=== PATIENT | female | born 1995 | race American Indian/Alaskan Native ===

== ENCOUNTER 2016-06-28 13:24 | Emergency (ER) | payer MEDICAID ==
[2016-06-28 15:40] LABS: Bacteria,Urine 1+ /HPF (Negative); Bilirubin,Urine NEG (Negative); Blood,Urine NEG (Negative); Ketones,Urine 80 mg/dL (Negative); Leukocyte Esterase,Urine NEG (Negative); Mucus,Urine 2+ /HPF; Nitrite,Urine NEG (Negative); Urobilinogen,Urine < 2.0 mg/dL (<2.0)
[2016-06-28 15:48] LABS: Basophils % (Auto) 0.6 % (0.0-1.8); Eosinophils % (Auto) 0.3 % (0.0-4.3); Hematocrit 38.1 % (30.3-42.9); Hemoglobin 12.4 gm/dl (10.1-14.3); Mean Corpuscular HGB Conc 32 % (30-34); Mean Corpuscular Hemoglobin 28 pg (28-32); Mean Corpuscular Volume 85 fl (79-97); Platelet Count 261 K/mm3 (140-440); Red Blood Count 4.47 M/mm3 (3.65-5.03); White Blood Count 8.4 K/mm3 (4.5-11.0)
[2016-06-28 16:00] LABS: Anion Gap 23 mmol/L; BUN/Creatinine Ratio 13.33; Blood Urea Nitrogen 8 mg/dL (7-17); Carbon Dioxide 20 mmol/L (22-30); Chloride 92.5 mmol/L (98-107); Glucose 73 mg/dL (65-100); Potassium 4.1 mmol/L (3.6-5.0); Sodium 131 mmol/L (137-145)
[2016-06-28] MEDS ORDERED: NACL 0.9% 1000 ML 1,000 ML IV ONE ×2 (21:03→21:04)
--- NOTE | 2016-06-28 21:06 | Emergency Department Report ---
HPI - General Chief Complaint: Nausea/Vomiting/Diarrhea Time Seen by Provider: 06/28/16 20:45 - HPI HPI: 21-year-old female presents the emergency department with nausea, vomiting, diarrhea, and lower abdominal pain that has been going on since last night. Patient also says she is about 3 months . There is been no bleeding, spotting, fever, back pain. Patient is with one previous miscarriage. She has a ADMINISTRATIVE OFFICE ASSISTANT back in [facility] but they just moved here to [place]. She denies any past medical history. No recent travel or sick contacts at home. She is not taken anything for symptoms prior to presentation. ED Past Medical Hx - Social History Smoking Status: Never Smoker Substance Use Type: None - Medications Home Medications: Home Medications Medication Instructions Recorded Confirmed Last Taken Type Vitamin 06/28/16 1 Day Ago History ED Review of Systems ROS: Stated complaint: ABD PAIN/PREG Other details as noted in HPI Comment: All other systems reviewed and negative Constitutional: denies: chills, fever Eyes: denies: eye pain, eye discharge, vision change ENT: denies: ear pain, throat pain Respiratory: denies: cough, shortness of breath, wheezing Cardiovascular: denies: chest pain, palpitations Gastrointestinal: abdominal pain, nausea, vomiting, diarrhea Genitourinary: denies: urgency, dysuria, discharge Musculoskeletal: denies: back pain, arthralgia Skin: denies: rash, lesions Neurological: denies: weakness, numbness Physical Exam - Physical Exam Vital Signs: Vital Signs 06/28/16 06/28/16 15:00 20:37 Temperature 98 F Pulse Rate 103 H Respiratory 103 H 16 Rate Blood Pressure 114/81 O2 Sat by Pulse 100 99 Oximetry Physical Exam: GENERAL: The patient is well-developed well-nourished. HEENT: Normocephalic. Atraumatic. Extraocular motions are intact. Patient has moist mucous membranes. Pupils equal reactive to light bilaterally. NECK: Supple. Trachea is midline. CHEST/LUNGS: Clear to auscultation. There is no respiratory distress noted. HEART/CARDIOVASCULAR: Regular. There is no tachycardia. There is no gallop rub or murmur. ABDOMEN: Abdomen is soft. Mild tenderness to palpation to the lower quadrants of the abdomen. No guarding rebound tenderness. Patient has normal bowel sounds. There is no abdominal distention. SKIN: There is no rash. There is no edema. There is no diaphoresis. NEURO: The patient is awake, alert, and oriented. The patient is cooperative. The patient has no focal neurologic deficits. The patient has normal speech. MUSCULOSKELETAL: There is no tenderness or deformity. There is no limitation range of motion. There is no evidence of acute injury. ED Course Vital Signs 06/28/16 06/28/16 15:00 20:37 Temperature 98 F Pulse Rate 103 H Respiratory 103 H 16 Rate Blood Pressure 114/81 O2 Sat by Pulse 100 99 Oximetry - Consultations Consultation #1: Earlier this evening I spoke with the ADMINISTRATIVE OFFICE ASSISTANT network operations project manager, Dr. Monet, regarding the abnormal ultrasound read of complex fluid versus bowel loop versus coagulation versus debris in the adnexa with a live intrauterine and normal- appearing ovaries. Dr. Monet agrees that it is important for the patient to follow-up with a ADMINISTRATIVE OFFICE ASSISTANT but otherwise there does not appear to be anything emergent going on requiring intervention from the emergency department and the patient is safe for discharge. 06/29/16 03:19 ED Medical Decision Making - Lab Data Result diagrams: 06/28/16 15:27 06/28/16 15:27 - Radiology Data Radiology results: report reviewed Transvaginal/ ultrasound shows a single live intrauterine at 10 weeks. There is a small amount of complex fluid with possible bowel loop, coagulation products of or debris in the left adnexa of certain etiology or significance. - Medical Decision Making 21-year-old female presents to the emergency department with some abdominal pain and copious nausea and vomiting while . No vaginal bleeding. Vital signs stable including being afebrile. Patient's labs are mostly unremarkable except for the 80 ketones seen in the urine showing dehydration. Patient did not want any Zofran after giving them the possible side effects of the medication. She was given 2 L of IV fluid resuscitation. Throughout her ED course the patient was seen drinking water that was bedside and was able to keep it down with any further vomiting. An ultrasound was done that shows a live intrauterine at about 10 weeks. There was some other incidental findings and/or read that was run by the ADMINISTRATIVE OFFICE ASSISTANT network operations project manager. Dr. Monet felt the patient was safe for discharge home but does encourage follow-up with ADMINISTRATIVE OFFICE ASSISTANT. The patient was started on vitamins and given multiple referrals for OB /RENTAL AGENT. She'll return to the ER with any worsening of her symptoms or any acute distress. - Differential Diagnosis , ectopic, miscarriage, fibroids, UTI Critical Care Time: No Critical care attestation.: If time is entered above; I have spent that time in minutes in the direct care of this critically ill patient, excluding procedure time. ED Disposition Clinical Impression: Hyperemesis gravidarum, Dehydration Qualifiers: Weeks of gestation: 10 weeks Qualified Code(s): Z3A.10 - 10 weeks gestation of Abdominal pain Qualifiers: Abdominal location: lower abdomen, unspecified Qualified Code(s): R10.30 - Lower abdominal pain, unspecified Disposition: DISCHARGED TO HOME OR SELFCARE Is pt being admited?: No Does the pt Need Aspirin: No Condition: Stable Instructions: (ED), Hyperemesis Gravidarum (ED), Abdominal Pain (ED) Additional Instructions: Please follow-up with an ADMINISTRATIVE OFFICE ASSISTANT in the next few days. Continue with your vitamins. Return to the emergency department with inability to keep down fluids, intractable abdominal pain, vaginal bleeding or any acute distress. Referrals: DR ANNA [Other] - 3-5 Days SKYLAR MONET MD [Staff Physician] - 3-5 Days KIMBERLEY FRANKLIN MD [Staff Physician] - 3-5 Days KB BROCK MD [Staff Physician] - 3-5 Days Time of Disposition: 00:02
--- NOTE | 2016-06-28 22:22 | Ultrasound Report ---
FINAL REPORT EXAM: US OB TRANSVAGINAL HISTORY: preg, abd pain TECHNIQUE: Transabdominal and transvaginal sonography of the pelvis. PRIORS: None. FINDINGS: There is a single, live intrauterine . Ultrasound estimated gestational age is 10 weeks 0 days. Ultrasound estimated date of confinement is 24 January 2017. heart motion is detected. Bilateral ovaries grossly unremarkable. Right ovary measures 2.7 x 1.9 x 1.8 cm and left ovary measures 1.6 x 1.2 x 1.3 cm. Small amount of free fluid and heterogeneously isoechoic-solid focus in left adnexa, nonspecific. Remainder of uterus and adnexa grossly unremarkable. IMPRESSION: 1. Single, live intrauterine . 2. Small amount of complex fluid with possible bowel loop, coagulation products or debris in left adnexa of uncertain etiology or significance. Clinical correlation and followup may be warranted.
--- NOTE | 2016-06-28 22:23 | Ultrasound Report ---
FINAL REPORT EXAM: US OB \T\lt; = 14 WEEKS FETUS HISTORY: preg, abd pain TECHNIQUE: Transabdominal and transvaginal sonography of the pelvis. PRIORS: None. FINDINGS: There is a single, live intrauterine . Ultrasound estimated gestational age is 10 weeks 0 days. Ultrasound estimated date of confinement is 24 January 2017. heart motion is detected. Bilateral ovaries grossly unremarkable. Right ovary measures 2.7 x 1.9 x 1.8 cm and left ovary measures 1.6 x 1.2 x 1.3 cm. Small amount of free fluid and heterogeneously isoechoic-solid focus in left adnexa, nonspecific. Remainder of uterus and adnexa grossly unremarkable. IMPRESSION: 1. Single, live intrauterine . 2. Small amount of complex fluid, with possible bowel loop, coagulation products or debris in left adnexa of uncertain etiology or significance. Clinical correlation and followup may be warranted.
[2016-06-29 02:25] VITALS: BP 112/71
== END 2016-06-29 01:15 | disposition home or self-care (01) ==
LOC: ED 13:24
DX: O21.1 Hyperemesis gravidarum with metabolic disturbance (principal); Z3A.10 10 weeks gestation of pregnancy
CPT/HCPCS: 36415; 76801; 76817; 80048; 81001; 81025; 85025; 96360; 99284; J7030; 82962

== ENCOUNTER 2017-01-24 22:54 | Inpatient (IN) | payer MEDICAID ==
[2017-01-24] MEDS ORDERED: LACTATED RINGERS 1,000 ML IV SCH (23:45)
[2017-01-24] MEDS ORDERED: PITOCin/NS 30 UNIT/500ML 30 UNITS/500 ML BAG IV SCH (23:45)
[2017-01-24] MEDS ORDERED: POLYCILLIN/NS 2 GM/100 ML 2 GM/100 ML BAG IV ONE (23:52)
[2017-01-24] MEDS ORDERED: XYLOCAINE 2% INFILTRATI ONE (23:52)
[2017-01-24] MEDS ORDERED: MINERAL OIL PO PRN (23:52)
[2017-01-24] MEDS ORDERED: NARCAN 0.4 MG/1 ML IV PRN (23:52)
[2017-01-24] MEDS ORDERED: BRETHINE SUB-Q PRN (23:52)
[2017-01-24] MEDS ORDERED: ePHEDrine SULFATE IV PRN (23:52)
[2017-01-24] MEDS ORDERED: ZOFRAN IV PRN (23:52)
[2017-01-24] MEDS ORDERED: STADOL IV PRN (23:52)
[2017-01-24] MEDS ORDERED: BRETHINE IVP PRN (23:52)
[2017-01-25] MEDS: SUBLIMAZE IV PRN ×2 (00:45→05:40)
[2017-01-25 01:30] LABS: Hematocrit 32.8 % (30.3-42.9); Hemoglobin 10.8 gm/dl (10.1-14.3); Mean Corpuscular HGB Conc 33 % (30-34); Mean Corpuscular Hemoglobin 28 pg (28-32); Mean Corpuscular Volume 85 fl (79-97); Platelet Count 178 K/mm3 (140-440); Red Blood Count 3.87 M/mm3 (3.65-5.03); Red Cell Distribution Width 16.6 % (13.2-15.2); White Blood Count 10.3 K/mm3 (4.5-11.0)
[2017-01-25] MEDS ORDERED: PITOCin/NS 30 UNIT/500ML 30 UNITS/500 ML BAG IV SCH (01:30)
[2017-01-25] MEDS ORDERED: ePHEDrine SULFATE ONE (02:12)
--- NOTE | 2017-01-25 02:15 | History and Physical Report ---
History of Present Illness Date of examination: 01/25/17 Date of admission: 01/24/17 23:53 Chief complaint: my water broke, contractions History of present illness: Pt is a 21 year old Portuguese [place]ian female SHAYY 01/23/17 at 40w2d who presents with rupture of membranes just before midnight, regular contractions and advanced cervical dilation of 5 cm. She denies vaginal bleeding. She has had care at [facility] since 12 wks complicated by echogenic intracardiac foci s/p MFM referral, anemia on iron thrice daily, IUGR vs size less than dates with small head (peds to evaluate head after ). She is GBS negative. Past History Past Medical History: hematologic disorders (anemia ) Past Surgical History: no surgical history Family/Genetic History: none Social history: - Obstetrical History Expected Date of Delivery: 01/23/17 Actual Gestation: 40 Week(s) 2 Day(s) : 2 Para: 0 Hx # Term Pregnancies: 0 Number of Pregnancies: 0 Spontaneous Abortions: 1 Induced : 0 Number of Living Children: 0 Medications and Allergies Allergies Allergy/AdvReac Type Severity Reaction Status Date / Time No Known Allergies Allergy Verified 06/28/16 15:06 Home Medications Medication Instructions Recorded Confirmed Last Taken Type Vitamin 06/28/16 1 Day Ago History Active Meds: Active Medications Butorphanol Tartrate (Stadol) 2 mg IV Q2H PRN PRN Reason: Pain , Severe (7-10) Fentanyl (Sublimaze) 100 mcg IV Q2H PRN PRN Reason: Labor Pain Last Admin: 01/25/17 00:45 Dose: 100 mcg Ampicillin Sodium (Polycillin/Ns 1 Gm/50 Ml) 1 gm in 50 mls @ 100 mls/hr IV Q4H KIRILL PRN Reason: Protocol Lactated Ringer's (Lactated Ringers) 1,000 mls @ 125 mls/hr IV DIRECT KIRILL Last Admin: 01/25/17 01:00 Dose: 999 mls/hr Oxytocin/Sodium Chloride (Pitocin/Ns 20 Unit/1000ml Drip) 20 units in 1,000 mls @ 125 mls/hr IV DIRECT KIRILL Oxytocin/Sodium Chloride (Pitocin/Ns 30 Unit/500ml) 30 units in 500 mls @ 1 mls /hr IV TITR KIRILL; 1 MILLIUNITS/MIN PRN Reason: Protocol Oxytocin/Sodium Chloride (Pitocin/Ns 30 Unit/500ml) 30 units in 500 mls @ 4 mls /hr IV TITR KIRILL PRN Reason: Protocol Mineral Oil (Mineral Oil) 30 ml PO QHS PRN PRN Reason: Constipation Naloxone HCl (Narcan 0.4 Mg/1 Ml) 0.1 mg IV Q2MIN PRN PRN Reason: Res Rate </= 8 or 02 SAT < 92% Ondansetron HCl (Zofran) 4 mg IV Q8H PRN PRN Reason: Nausea And Vomiting Review of Systems All systems: negative - Vital Signs Vital signs: Vital Signs Pulse BP 78 120/69 01/24/17 23:29 01/24/17 23:29 Temp Pulse Resp BP Pulse Ox 97.3 F L 78 14 116/73 100 01/25/17 01:28 01/25/17 02:13 01/25/17 01:28 01/25/17 01:01/25/17 02:13 - Physical Exam Breasts: Positive: deferred Cardiovascular: Regular rate Lungs: Positive: Clear to auscultation Abdomen: Positive: soft (gravid ) Genitourinary (Female): Positive: normal external genitalia Uterus: Positive: enlarged (gravid ) Extremities: Positive: normal - Obstetrical FHR: category 1 Uterine Contraction Monitor Mode: External Cervical Dilatation: 10 Cervical Effacement Percentage: 100 station: 0 Uterine Contraction Pattern: Regular Uterine Tone Measurement Phase: Resting Uterine Contraction Intensity: Strong/Firm Results Result Diagrams: 01/25/17 00:10 Abnormal lab results 01/25/17 Range/Units 00:10 RDW 16.6 H (13.2-15.2) % All other labs normal. Assessment and Plan A: IUP at 40w2d Second Stage Labor Small Head (Third percentile) GBS negative Meconium P: Admit to labor and delivery. Routine intrapartum care. Notify peds
[2017-01-25] MEDS ORDERED: ePHEDrine SULFATE IV PRN (02:24)
[2017-01-25] MEDS ORDERED: NARCAN 2 MG/2 ML IV PRN (02:24)
--- NOTE | 2017-01-25 02:25 | Anesthesia Consultation ---
Anesthesia Consult and Med Hx Date of service: 01/25/17 - Airway Anesthetic Teeth Evaluation: Good ROM Head & Neck: Adequate Mental/Hyoid Distance: Adequate Mallampati Class: Class II Intubation Access Assessment: Probably Good - Pulmonary Exam CTA: Yes - Cardiac Exam Cardiac Exam: RRR - Pre-Operative Health Status ASA Pre-Surgery Classification: ASA2 Proposed Anesthetic Plan: Epidural, Spinal - Pulmonary Hx Asthma: No COPD: No Hx Pneumonia: No - Endocrine Hx End Stage Renal Disease: No - Additional Comments Anesthesia Medical History Comments: +IUP
[2017-01-25] MEDS ORDERED: fentaNYL-BUPIV 2 MCG/ML-0.125% 200 MCG/100 ML BAG EPIDURAL SCH (03:00)
[2017-01-25] MEDS ORDERED: POLYCILLIN/NS 1 GM/50 ML 1 GM/50 ML BAG IV SCH (04:00)
[2017-01-25] MEDS: PITOCin/NS 20 UNIT/1000ML DRIP 20 UNITS/1,000 ML BAG IV SCH ×2 (05:16→06:30)
[2017-01-25] MEDS ORDERED: CYTOTEC PR ONE (05:20)
[2017-01-25] MEDS ORDERED: CYTOTEC ONE (05:27)
--- NOTE | 2017-01-25 05:58 | Procedure Note ---
OB Delivery Note - Delivery Date of Delivery: 01/25/17 Surgeon: SKYLAR HANSEN Estimated blood loss: other (775 mL) - Vaginal Delivery presentation: vertex Delivery position: OA Intrapartum events: PROM->1hr before delivery, hemorrhage, uterine atony Delivery induction: none Delivery monitor: external FHT, external uterine Route of delivery: Delivery placenta: spontaneous Delivery cord: nuchal cord, 3 umbilical vessels Episiotomy: none Delivery laceration: 2nd degree Delivery repair: vicryl Anesthesia: epidural Delivery comments: Pt progressed to complete/complete/+3 and pushed to deliver a viable female over intact perineum under epidural anesthesia via . Head delivered in DORA position. Nuchal cord x 1 reduced. Shoulders and body delivered without difficulty. placed on maternal abdomen and bulb suctioned. The cord was clamped and cut. Cord blood collected. Placenta delivered spontaneously (3VC, intact). Vagina and pernieum explored. Second degree perineal laceration was repaired in a standard fashion with 2-0 Vicryl. Uterus noted to be atonic and heavy vaginal bleeding noted. Bimanual massage, Methergine 0.2 mg IM and cytotec 800 mcg per rectum administered. Bleeding scant. Ocampo catheter and vaginal pack placed. EBL 775 mL. - Infant A at 1 minute: 8 at 5 minutes: 9 Infant Gender: Female (2935g (6lb 8oz) @ 0505 am)
[2017-01-25] MEDS ORDERED: METHERGINE IM ONE (07:04)
[2017-01-25] MEDS ORDERED: BENADRYL PO PRN (07:51)
[2017-01-25] MEDS ORDERED: NORCO 5/325 PO PRN (07:51)
[2017-01-25] MEDS ORDERED: TYLENOL PO PRN (07:51)
[2017-01-25] MEDS ORDERED: TUCKS PAD TP PRN (07:51)
[2017-01-25] MEDS ORDERED: PITOCin/NS 20 UNIT/1000ML DRIP 20 UNITS/1,000 ML BAG IV SCH (07:51)
[2017-01-25] MEDS ORDERED: SODIUM CHLORIDE FLUSH SYRINGE 10 ML IV NR (07:51)
[2017-01-25] MEDS ORDERED: PHENERGAN PR PRN (07:51)
[2017-01-25] MEDS ORDERED: LANSINOH TP PRN (07:51)
[2017-01-25] MEDS ORDERED: PHENERGAN PO PRN (07:51)
[2017-01-25] MEDS ORDERED: DULCOLAX PR PRN (07:51)
[2017-01-25] MEDS ORDERED: MILK OF MAGNESIA PO PRN (07:51)
[2017-01-25] MEDS ORDERED: ZOFRAN IV PRN (07:51)
[2017-01-25] MEDS: PRENATAL VITAMIN PO SCH (09:24)
[2017-01-25] MEDS: COLACE PO SCH ×2 (09:24→20:35)
[2017-01-25] MEDS: FEOSOL PO SCH ×2 (09:24→20:35)
[2017-01-25] MEDS: MOTRIN PO SCH ×2 (09:24→16:42)
[2017-01-25 12:25] LABS: Hematocrit 26.9 % (30.3-42.9); Hemoglobin 8.6 gm/dl (10.1-14.3); Mean Corpuscular HGB Conc 32 % (30-34); Mean Corpuscular Hemoglobin 28 pg (28-32); Mean Corpuscular Volume 86 fl (79-97); Platelet Count 160 K/mm3 (140-440); Red Blood Count 3.13 M/mm3 (3.65-5.03); Red Cell Distribution Width 16.7 % (13.2-15.2); White Blood Count 11.4 K/mm3 (4.5-11.0)
--- NOTE | 2017-01-25 15:04 | Progress Note ---
Assessment and Plan A: DOD s/p at term complicated by hemorrhage, anemia P: Turner and vaginal packing removed. PO Methergine course. Closely monitor clinical status and need for transfusion. Subjective - Subjective Date of service: 01/25/17 Principal diagnosis: s/p at term, Hemorrhage Interval history: Pt feels tired since she has not slept since the delivery. She has not yet ambulated. Patient reports: appetite normal, no voiding normally (turner in place ), no ambulating normally Bowie: doing well Objective - Vital Signs Latest vital signs: Vital Signs Temp Pulse Resp BP BP Pulse Ox 01/25/17 12:00 98.5 F 84 18 102/52 01/25/17 09:24 18 01/25/17 07:35 99.8 F H 70 20 123/71 01/25/17 07:08 64 100 01/25/17 07:03 64 100 01/25/17 06:58 66 129/77 100 01/25/17 06:53 65 100 01/25/17 06:48 67 99 01/25/17 06:44 72 126/73 01/25/17 06:43 72 92 01/25/17 06:28 79 141/69 01/25/17 06:17 105 H 100 01/25/17 06:13 100 H 133/61 01/25/17 06:12 94 H 100 01/25/17 06:07 87 100 01/25/17 06:03 117 H 147/69 01/25/17 06:02 106 H 100 01/25/17 05:58 61 120/65 01/25/17 05:53 69 100 01/25/17 05:48 66 99 01/25/17 05:44 69 123/66 01/25/17 05:43 72 165/66 100 01/25/17 05:40 64 12 146/65 01/25/17 05:38 72 100 01/25/17 05:33 72 120/69 100 01/25/17 05:28 67 126/66 100 01/25/17 05:27 70 117/61 01/25/17 04:59 65 130/65 01/25/17 03:59 71 139/65 01/25/17 03:56 67 0 L 01/25/17 03:53 66 100 01/25/17 03:48 72 94 09/16/17 03:43 72 100 01/25/17 03:38 74 100 01/25/17 03:33 71 100 01/25/17 03:28 68 100 01/25/17 03:25 89 93 01/25/17 03:23 82 100 01/25/17 03:18 64 100 01/25/17 03:13 62 100 01/25/17 03:08 83 100 01/25/17 03:03 76 100 01/25/17 02:58 73 100 01/25/17 02:57 66 111/64 01/25/17 02:55 68 116/66 01/25/17 02:53 75 117/65 100 01/25/17 02:51 76 113/62 01/25/17 02:49 76 113/63 01/25/17 02:48 76 100 01/25/17 02:47 83 113/62 01/25/17 02:45 79 121/66 01/25/17 02:43 77 130/70 99 01/25/17 02:41 80 124/70 01/25/17 02:39 76 124/70 01/25/17 02:38 81 99 01/25/17 02:37 88 115/68 01/25/17 02:35 90 129/77 01/25/17 02:33 81 139/91 100 01/25/17 02:28 80 100 01/25/17 02:23 96 H 100 01/25/17 02:18 74 100 01/25/17 02:13 78 100 01/25/17 01:28 97.3 F L 71 14 116/73 01/25/17 00:00 84 99 01/24/17 23:55 77 99 01/24/17 23:50 86 99 01/24/17 23:48 86 78 L 01/24/17 23:45 78 100 01/24/17 23:40 89 100 01/24/17 23:35 81 100 01/24/17 23:30 88 98 01/24/17 23:29 78 120/69 Intake and Output 01/25/17 01/25/17 01/25/17 06:59 14:59 22:59 Intake Total 360 Output Total 1200 Balance -840 Intake: Oral 360 Output: Urine 1200 Indwelling Catheter 800 Void 400 Other: Total, Intake Amount 360 Total, Output Amount 400 Weight 64.864 kg Estimated Blood Loss 775 - Exam Breasts: Present: deferred Cardiovascular: Present: Regular rate Lungs: Present: Clear to auscultation Abdomen: Present: soft Uterus: Present: firm, fundal height at umbilicus Extremities: Present: normal - Labs Labs: Abnormal lab results 01/25/17 01/25/17 Range/Units 00:10 12:10 WBC 11.4 H (4.5-11.0) K/mm3 RBC 3.13 L (3.65-5.03) M/mm3 Hgb 8.6 L (10.1-14.3) gm/dl Hct 26.9 L (30.3-42.9) % RDW 16.6 H 16.7 H (13.2-15.2) %
[2017-01-25 18:58] LABS: Hematocrit 25.8 % (30.3-42.9); Hemoglobin 8.3 gm/dl (10.1-14.3)
[2017-01-26] MEDS: MOTRIN PO SCH ×4 (00:08→18:30)
[2017-01-26] MEDS ORDERED: M-M-R II VACCINE SUB-Q ONE (06:03)
[2017-01-26] MEDS ORDERED: BOOSTRIX IM ONE (06:03)
[2017-01-26] MEDS: FEOSOL PO SCH ×2 (11:35→22:48)
[2017-01-26] MEDS: COLACE PO SCH ×2 (11:35→23:07)
[2017-01-26] MEDS: PRENATAL VITAMIN PO SCH (11:35)
[2017-01-26] MEDS ORDERED: Fluarix Quad 2017-2018(36 MOS+) IM ONE (12:00)
--- NOTE | 2017-01-26 12:05 | Progress Note ---
Assessment and Plan A: PPD#1 s/p at term complicated by hemorrhage, asymptomatic anemia P: Continue routine care. Methergine series. Anticipate discharge tomorrow. Subjective - Subjective Date of service: 01/26/17 Principal diagnosis: s/p at term, Hemorrhage Interval history: Pt without complaints. Feeling much better than yesterday. She reports that her lochia is heavy but not as heavy as yesterday. Patient reports: appetite normal, voiding normally, pain well controlled, ambulating normally : doing well Objective - Vital Signs Latest vital signs: Vital Signs Temp Pulse Resp BP BP 01/26/17 08:30 98.5 F 61 19 85/58 01/26/17 00:00 97.7 F 75 18 96/65 01/25/17 20:35 18 01/25/17 17:50 72 96/64 01/25/17 17:45 72 80/56 01/25/17 16:42 18 01/25/17 16:00 97.8 F 78 18 85/52 Intake and Output 01/25/17 01/26/17 01/26/17 22:59 06:59 14:59 Intake Total 360 600 120 Output Total 300 700 Balance 60 -100 120 Intake: Oral 120 120 Intake, Free Water 240 600 Output: Urine 300 700 Void 300 700 Other: Total, Intake Amount 120 120 Total, Output Amount 300 150 # Voids Void 1 2 1 - Exam Breasts: Present: deferred Cardiovascular: Present: Regular rate Lungs: Present: Clear to auscultation Abdomen: Present: soft Uterus: Present: firm, fundal height at umbilicus Extremities: Present: normal - Labs Labs: Abnormal lab results 01/25/17 01/25/17 Range/Units 12:10 18:30 WBC 11.4 H (4.5-11.0) K/mm3 RBC 3.13 L (3.65-5.03) M/mm3 Hgb 8.6 L 8.3 L (10.1-14.3) gm/dl Hct 26.9 L 25.8 L (30.3-42.9) % RDW 16.7 H (13.2-15.2) %
--- NOTE | 2017-01-26 12:10 | Discharge Summary ---
Providers - Providers Date of Admission: 01/24/17 23:53 Date of discharge: 01/27/17 Attending physician: SKYLAR HANSEN 01/25/17 07:51 Consult to Residential Framing Carpenter [CONS] Routine Reason For Exam: assistance with , SNS Primary care physician: SKYLAR HANSEN Hospitalization Reason for admission: active labor Delivery: Procedure details: Please see delivery note. Episiotomy: none Laceration: 2nd degree Incision: normal Other procedures: none complications: uterine atony Discharge diagnosis: IUP at term delivered Clemons baby: female Hospital course: Pt was admitted in active labor and went on to have vaginal delivery which was complicated py uterine atony and hemorrhage. The remainder of her course was uncomplicated and she met discharge criteria on PPD#2. She will follow up in the office in two weeks with Dr Craven. Condition at discharge: Stable Disposition: DC-01 TO HOME OR SELFCARE - Discharge Diagnoses (1) Term of female Status: Acute (2) Anemia Status: Acute Qualifiers: Anemia type: unspecified type Iron deficiency anemia type: I Vitamin B12 deficiency anemia type: V Folate deficiency anemia type: F Bone marrow failure anemia type: B Hemolytic anemia type: H Other causes of anemia: O Chronic kidney disease stage: C Qualified Code(s): D64.9 - Anemia, unspecified Plan - Discharge Medications Prescriptions: Ferrous Sulfate [Feosol 325 MG tab] 325 mg PO BID #60 tablet HYDROcodone/APAP 5-325 [[place] 5/325] 1 each PO Q6HR PRN #30 tablet PRN Reason: Pain Ibuprofen [Motrin] 600 mg PO Q6H PRN #30 tablet PRN Reason: Pain - Provider Discharge Summary Activity: routine, no sex for 6 weeks, no heavy lifting 4 weeks, no strenuous exercise Diet: routine Instructions: routine Additional instructions: [] Smoking cessation referral if applicable(refer to patient education folder for contact #) [] Refer to [facility]'s [facility] Booklet Call your doctor immediately for: * Fever > 100.5 * Heavy vaginal bleeding ( >1 pad per hour) * Severe persistent headache * Shortness of breath * Reddened, hot, painful area to leg or breast * Drainage or odor from incision. * Keep incision clean and dry at all times and follow doctor's instructions regarding bathing/showering - Follow up plan Follow up: DAVID CRAVEN MD [Staff Physician] - 02/10/17 (laceration check- please call to schedule appt)
[2017-01-26] MEDS: METHERGINE PO SCH ×2 (13:50→22:48)
[2017-01-27] MEDS: MOTRIN PO SCH ×3 (00:16→12:29)
[2017-01-27] MEDS: METHERGINE PO SCH (06:03)
[2017-01-27 09:30] VITALS: BP 116/62
[2017-01-27] MEDS: FEOSOL PO SCH (10:44)
[2017-01-27] MEDS: COLACE PO SCH (10:44)
[2017-01-27] MEDS: PRENATAL VITAMIN PO SCH (10:45)
== END 2017-01-27 16:00 | disposition home or self-care (01) | DRG 774 ==
LOC: TRG 22:54 → LD 23:53 → OB 01-25 07:36
PROVIDERS: ADMIT Obstetrics & Gynecology; ATTEND Obstetrics & Gynecology
PROC: 10E0XZZ Delivery of Products of Conception, External Approach (ICD-10-PCS; principal; 2017-01-25)
PROC: 0KQM0ZZ Repair Perineum Muscle, Open Approach (ICD-10-PCS; 2017-01-25)
PROC: 3E0S3CZ (ICD-10-PCS; 2017-01-25)
PROC: 00HU33Z Insertion of Infusion Device into Spinal Canal, Percutaneous Approach (ICD-10-PCS; 2017-01-25)
PROC: 3E0234Z Introduction of Serum, Toxoid and Vaccine into Muscle, Percutaneous Approach (ICD-10-PCS; 2017-01-25)
DX: O69.81X0 Labor and delivery complicated by cord around neck, without compression, not applicable or unspecified (principal); O72.1 Other immediate postpartum hemorrhage; O42.02 Full-term premature rupture of membranes, onset of labor within 24 hours of rupture; O77.0 Labor and delivery complicated by meconium in amniotic fluid; D64.9 Anemia, unspecified; O70.1 Second degree perineal laceration during delivery; Z3A.40 40 weeks gestation of pregnancy; Z37.0 Single live birth; Z23 Encounter for immunization; O99.03 Anemia complicating the puerperium
CPT/HCPCS: 36415; 85014; 85018; 85027; 86592; 86850; 86900; 86901; 88307; 90471; 90686; 90715; 99211; G0008; G0463; J2210; J2590; J3010; J7120

== ENCOUNTER 2018-10-02 19:11 | Emergency (ER) | payer SELFPAY ==
--- NOTE | 2018-10-02 19:42 | Emergency Department Report ---
Blank Doc - Documentation Documentation: pt presents with N/V/D that began a week ago LNMP: two months ago, hx of irregular cycles +lightheaded no urinary sx no abd pain able to tolerate PO intake no PMHx
[2018-10-02 20:20] LABS: BUN/Creatinine Ratio 16; Blood Urea Nitrogen 11 mg/dL (7-17); Calcium 8.7 mg/dL (8.4-10.2); Hemolysis Index 2
[2018-10-02 23:10] LABS: Basophils % (Auto) 0.6 % (0.0-1.8); Eosinophils # (Auto) 0.1 K/mm3 (0.0-0.4); Eosinophils % (Auto) 1.9 % (0.0-4.3); Hematocrit 35.8 % (30.3-42.9); Hemoglobin 11.8 gm/dl (10.1-14.3); Lymphocytes # (Auto) 2.2 K/mm3 (1.2-5.4); Lymphocytes % (Auto) 27.8 % (13.4-35.0); Mean Corpuscular HGB Conc 33 % (30-34); Mean Corpuscular Volume 86 fl (79-97); Monocytes # (Auto) 0.8 K/mm3 (0.0-0.8); Monocytes % (Auto) 9.7 % (0.0-7.3); Platelet Count 235 K/mm3 (140-440); Red Blood Count 4.15 M/mm3 (3.65-5.03); Red Cell Distribution Width 13.7 % (13.2-15.2)
[2018-10-02 23:13] LABS: HCG Qualitative,Urine Positive (Negative)
[2018-10-02 23:16] LABS: Bilirubin,Urine NEG (Negative); Blood,Urine NEG (Negative); Color,Urine Yellow (Yellow); Mucus,Urine 3+ /HPF; Urobilinogen,Urine < 2.0 mg/dL (<2.0)
--- NOTE | 2018-10-03 00:37 | Ultrasound Report ---
PROCEDURE: US OB <= 14 WEEKS FETUS TECHNIQUE: Real-time transabdominal sonography of the uterus, placenta, amniotic fluid, adnexa, and fetus was performed with image documentation. Measurements were obtained to determine age/size. M-mode Doppler was used to document heartbeat. ADDITIONAL GESTATION: None. HISTORY: Abd pain with +preg COMPARISONS: None . FINDINGS: CRL: 26 mm, which corresponds to a gestational age of: 9 weeks, 3 days. Yolk Sac: Appropriate for gestational age. . Embryonic Cardiac Activity: 164 bpm . Gestational Sac: Size and shape are appropriate for gestational age Placenta: Normal Amniotic fluid: Appropriate for gestational age. Cervix: Normal. Right Ovary: There is a 20 mm cyst on the right ovary . Left Ovary: Normal . Estimated delivery date: 05/05/2019 . Uterus and adnexa: Normal. IMPRESSION: Single live intrauterine gestation at approximately 9 weeks 3 days . EDC by US 05/05/20 19 . This document is electronically signed by Cheryl Dowell DO., Oct 03 2018 12:35:27 AM ET
--- NOTE | 2018-10-03 01:10 | Emergency Department Report ---
ED Female HPI - General Chief complaint: Dizziness Stated complaint: VOMITING/HEADACHE/DIZZY/ABDOMINAL PAIN Time Seen by Provider: 10/02/18 19:40 Source: patient Mode of arrival: Ambulatory Limitations: No Limitations - History of Present Illness Initial comments: 23-year-old -German female presents to the emergency room nausea vomiting headache dizziness and abdominal pain 1 week. Patient admits to nausea and dizziness only when she gets up. No fever no chills last menstrual period was last month. She is 2 para 1 she reports she has a history of abnormal menses. She last vomited 5 hours ago. 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 She reports her pain is intermittent and as high as 5 out of 10. Onset/Timin -: week(s) Radiation: suprapubic Severity scale (0 -10): 5 Quality: sharp Consistency: intermittent Improves with: none Worsens with: none Are you Now?: No Associated Symptoms: nausea/vomiting - Related Data Sexually active: Yes (unprotected) : 2 Para: 1 Previous Rx's Medication Instructions Recorded Last Taken Type Ferrous Sulfate [Feosol 325 MG tab] 325 mg PO BID #60 tablet 01/25/17 Unknown Rx HYDROcodone/APAP 5-325 [[place] 1 each PO Q6HR PRN #30 tablet 01/25/17 Unknown Rx 5/325] Ibuprofen [Motrin] 600 mg PO Q6H PRN #30 tablet 01/25/17 Unknown Rx Vitamin 1 tab PO QDAY #90 10/03/18 Unknown Rx Allergies Allergy/AdvReac Type Severity Reaction Status Date / Time No Known Allergies Allergy Verified 06/28/16 15:06 ED Review of Systems ROS: Stated complaint: VOMITING/HEADACHE/DIZZY/ABDOMINAL PAIN Other details as noted in HPI Comment: All other systems reviewed and negative Gastrointestinal: abdominal pain, nausea, vomiting ED Past Medical Hx - Past Medical History Previous Medical History?: Yes Hx Hypertension: No Hx Congestive Heart Failure: No Hx Diabetes: No Hx Deep Vein Thrombosis: No Hx Renal Disease: No Hx Sickle Cell Disease: No Hx Seizures: No Hx Asthma: No Hx COPD: No Hx HIV: No - Surgical History Past Surgical History?: No - Social History Smoking Status: Never Smoker Substance Use Type: None - Medications Home Medications: Home Medications Medication Instructions Recorded Confirmed Last Taken Type Ferrous Sulfate [Feosol 325 MG tab] 325 mg PO BID #60 tablet 01/25/17 Unknown Rx HYDROcodone/APAP 5-325 [[place] 1 each PO Q6HR PRN #30 tablet 01/25/17 Unknown Rx 5/325] Ibuprofen [Motrin] 600 mg PO Q6H PRN #30 tablet 01/25/17 Unknown Rx Vitamin 1 tab PO QDAY #90 10/03/18 Unknown Rx ED Physical Exam - General Limitations: No Limitations General appearance: alert, in no apparent distress - Head Head exam: Present: atraumatic, normocephalic - Eye Eye exam: Present: normal appearance - ENT ENT exam: Present: mucous membranes moist - Neck Neck exam: Present: normal inspection - Respiratory Respiratory exam: Present: normal lung sounds bilaterally. Absent: respiratory distress - Cardiovascular Cardiovascular Exam: Present: regular rate, normal rhythm. Absent: systolic murmur, diastolic murmur, rubs, gallop - GI/Abdominal GI/Abdominal exam: Present: soft, tenderness, normal bowel sounds. Absent: distended - Extremities Exam Extremities exam: Present: normal inspection - Back Exam Back exam: Present: normal inspection - Neurological Exam Neurological exam: Present: alert, oriented X3 - Psychiatric Psychiatric exam: Present: normal affect, normal mood - Skin Skin exam: Present: warm, dry, intact, normal color. Absent: rash ED Course Vital Signs 10/02/18 10/02/18 10/02/18 19:17 19:31 22:38 Temperature 97.9 F 97.9 F 98.0 F Pulse Rate 71 71 64 Respiratory 16 16 18 Rate Blood Pressure 100/71 100/71 Blood Pressure 119/71 [Left] O2 Sat by Pulse 100 100 100 Oximetry 10/02/18 22:40 Temperature Pulse Rate Respiratory 16 Rate Blood Pressure Blood Pressure [Left] O2 Sat by Pulse Oximetry ED Medical Decision Making - Lab Data Result diagrams: 10/02/18 23:00 10/02/18 19:52 - Radiology Data Radiology results: report reviewed Patient: HEATHER CUEVAS MR#: [id number] : 1995 Acct:[id number] Age/Sex: 23 / F ADM Date: 10/02/18 Loc: ED Attending Dr: Ordering Physician: ELIZABETH PONCE Date of Service: 10/02/18 Procedure(s): US OB <= 14 weeks fetus Accession Number(s): [id number] cc: ELIZABETH PONCE PROCEDURE: US OB <= 14 WEEKS FETUS TECHNIQUE: Real-time transabdominal sonography of the uterus, placenta, amniotic fluid, adnexa, and fetus was performed with image documentation. Measurements were obtained to determine age/size. M-mode Doppler was used to document heartbeat. ADDITIONAL GESTATION: None. HISTORY: Abd pain with +preg COMPARISONS: None . FINDINGS: CRL: 26 mm, which corresponds to a gestational age of: 9 weeks, 3 days. Yolk Sac: Appropriate for gestational age. . Embryonic Cardiac Activity: 164 bpm . Gestational Sac: Size and shape are appropriate for gestational age Placenta: Normal Amniotic fluid: Appropriate for gestational age. Cervix: Normal. Right Ovary: There is a 20 mm cyst on the right ovary . Left Ovary: Normal . Estimated delivery date: 05/05/2019 . Uterus and adnexa: Normal. IMPRESSION: Single live intrauterine gestation at approximately 9 weeks 3 days . EDC by 05/05/2019 . This document is electronically signed by Cheryl Dowell DO., Oct 03 2018 12:35:27 AM ET Transcribed By: [facility] Dictated By: CHERYL DOWELL MD Electronically Authenticated By: CHERYL DOWELL MD Signed Date/Time: 10/03/18 0037 DD/ 002 TD/TT: 10/03/18 0023 - Medical Decision Making 23-year-old -German female comes in for abdominal pain, dizziness, nausea and vomiting. Patient urine came back positive for . HCG was ordered. Ultrasound shows patient is 9 weeks with cardiac activity. Patient has a intrauterine gestation. Critical care attestation.: If time is entered above; I have spent that time in minutes in the direct care of this critically ill patient, excluding procedure time. ED Disposition Clinical Impression: Abdominal pain Qualifiers: Abdominal location: lower abdomen, unspecified Qualified Code(s): R10.30 - Lower abdominal pain, unspecified Ovarian cyst Qualifiers: Laterality: right Qualified Code(s): N83.201 - Unspecified ovarian cyst, right side Qualifiers: Weeks of gestation: 9 weeks Qualified Code(s): Z3A.09 - 9 weeks gestation of Disposition: DC-01 TO HOME OR SELFCARE Is pt being admited?: No Does the pt Need Aspirin: No Condition: Stable Instructions: Ovarian Cyst (ED), (ED) Additional Instructions: Take vitamins as prescribed. Follow up with [facility]. Tylenol for pain. Prescriptions: Vitamin 1 tab PO QDAY #90 Referrals: CRISELDA GONZALEZ MD [Primary Care Provider] - 3-5 Days
[2018-10-03 01:30] VITALS: BP 121/64
== END 2018-10-03 01:40 | disposition home or self-care (01) ==
LOC: ED 19:11
DX: O34.81 Maternal care for other abnormalities of pelvic organs, first trimester (principal); N83.201 Unspecified ovarian cyst, right side; Z3A.09 9 weeks gestation of pregnancy; Z79.899 Other long term (current) drug therapy
CPT/HCPCS: 36415; 76801; 80048; 81001; 81025; 84702; 85025; 93005; 93010

== ENCOUNTER 2018-11-24 03:21 | Emergency (ER) | payer SELFPAY ==
[2018-11-24] MEDS ORDERED: NACL 0.9% 1000 ML 1,000 ML IV ONE (03:28)
[2018-11-24] MEDS ORDERED: ZOFRAN IV ONE (03:28)
[2018-11-24] MEDS ORDERED: MORPHINE IV ONE (03:29)
[2018-11-24 03:41] VITALS: BP 105/59
[2018-11-24 03:51] LABS: Basophils # (Auto) 0.1 K/mm3 (0.0-0.1); Basophils % (Auto) 0.8 % (0.0-1.8); Eosinophils # (Auto) 0.1 K/mm3 (0.0-0.4); Eosinophils % (Auto) 1.4 % (0.0-4.3); Hematocrit 34.9 % (30.3-42.9); Hemoglobin 11.7 gm/dl (10.1-14.3); Lymphocytes # (Auto) 2.3 K/mm3 (1.2-5.4); Lymphocytes % (Auto) 30.5 % (13.4-35.0); Mean Corpuscular HGB Conc 34 % (30-34); Mean Corpuscular Volume 85 fl (79-97); Monocytes # (Auto) 0.7 K/mm3 (0.0-0.8); Monocytes % (Auto) 9.1 % (0.0-7.3); Red Blood Count 4.09 M/mm3 (3.65-5.03); Red Cell Distribution Width 13.9 % (13.2-15.2)
[2018-11-24 03:52] LABS: Platelet Count 239 K/mm3 (140-440)
--- NOTE | 2018-11-24 04:16 | Emergency Department Report ---
ED Female HPI - General Chief complaint: Abdominal Pain Stated complaint: ABD PAIN/ Time Seen by Provider: 11/24/18 03:25 Source: patient, EMS Mode of arrival: Stretcher Limitations: No Limitations - History of Present Illness Initial comments: Marcelino is a 23 yo female who is currently 16 weeks and 6 days according to SHAYY 05/05/2019 who presents with sudden severe pelvic pain. No discharge. No vaginal bleeding. 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 She has one child. One previous miscarriage. This is her third pregancy. MD Complaint: pelvic pain -: Sudden, hour(s) (1) Severity: severe Severity scale (0 -10): 10 Quality: cramping Consistency: constant Improves with: none Worsens with: none Are you Now?: Yes Associated Symptoms: denies other symptoms - Related Data Previous Rx's Medication Instructions Recorded Last Taken Type Ferrous Sulfate [Feosol 325 MG tab] 325 mg PO BID #60 tablet 01/25/17 Unknown Rx HYDROcodone/APAP 5-325 [[place] 1 each PO Q6HR PRN #30 tablet 01/25/17 Unknown Rx 5/325] Ibuprofen [Motrin] 600 mg PO Q6H PRN #30 tablet 01/25/17 Unknown Rx Vitamin 1 tab PO QDAY #90 10/03/18 Unknown Rx Allergies Allergy/AdvReac Type Severity Reaction Status Date / Time No Known Allergies Allergy Verified 06/28/16 15:06 ED Review of Systems ROS: Stated complaint: ABD PAIN/ Other details as noted in HPI Comment: All other systems reviewed and negative Constitutional: denies: fever, malaise Respiratory: denies: cough Cardiovascular: denies: chest pain ED Past Medical Hx - Past Medical History Previous Medical History?: No Hx Hypertension: No Hx Congestive Heart Failure: No Hx Diabetes: No Hx Deep Vein Thrombosis: No Hx Renal Disease: No Hx Sickle Cell Disease: No Hx Seizures: No Hx Asthma: No Hx COPD: No Hx HIV: No - Surgical History Past Surgical History?: No - Social History Smoking Status: Never Smoker Substance Use Type: None - Medications Home Medications: Home Medications Medication Instructions Recorded Confirmed Last Taken Type Ferrous Sulfate [Feosol 325 MG tab] 325 mg PO BID #60 tablet 01/25/17 Unknown Rx HYDROcodone/APAP 5-325 [[place] 1 each PO Q6HR PRN #30 tablet 01/25/17 Unknown Rx 5/325] Ibuprofen [Motrin] 600 mg PO Q6H PRN #30 tablet 01/25/17 Unknown Rx Vitamin 1 tab PO QDAY #90 10/03/18 Unknown Rx ED Physical Exam - General Limitations: No Limitations General appearance: alert, in no apparent distress, other (appears in severe pain) - Head Head exam: Present: atraumatic, normocephalic - Eye Eye exam: Present: normal appearance - ENT ENT exam: Present: mucous membranes moist - Neck Neck exam: Present: normal inspection - Respiratory Respiratory exam: Present: normal lung sounds bilaterally. Absent: respiratory distress, wheezes, rales, rhonchi - Cardiovascular Cardiovascular Exam: Present: regular rate, normal rhythm, normal heart sounds. Absent: systolic murmur, diastolic murmur, rubs, gallop - GI/Abdominal GI/Abdominal exam: Present: soft, normal bowel sounds. Absent: distended, tenderness, guarding, rebound - Extremities Exam Extremities exam: Present: normal inspection - Back Exam Back exam: Present: normal inspection - Neurological Exam Neurological exam: Present: alert, oriented X3 - Psychiatric Psychiatric exam: Present: normal affect, normal mood - Skin Skin exam: Present: warm, dry, intact, normal color. Absent: rash ED Course Vital Signs 11/24/18 11/24/18 11/24/18 03:30 03:32 04:00 Temperature 97.7 F Pulse Rate 65 Respiratory 28 H 21 21 Rate Blood Pressure 105/59 Blood Pressure 105/59 [Left] O2 Sat by Pulse 100 100 Oximetry 11/24/18 11/24/18 04:02 04:34 Temperature Pulse Rate 71 Respiratory 16 14 Rate Blood Pressure 105/59 Blood Pressure [Left] O2 Sat by Pulse 99 Oximetry ED Medical Decision Making - Lab Data Result diagrams: 11/24/18 03:35 11/24/18 03:35 - Medical Decision Making Marcelino presents with severe pelvic pain. Ultrasound reveals healthy 16 week . Differential diagnosis includes threatened miscarriage, a ppendicitis, cystitis, round ligament pain, ovarian cysts. Normal WBC. No abdominal tenderness. Pain is easily controlled with 1 dose of morphine. She was given return precautions. Recommended heat and Tylenol. Critical care attestation.: If time is entered above; I have spent that time in minutes in the direct care of this critically ill patient, excluding procedure time. ED Disposition Clinical Impression: Abdominal pain affecting , antepartum Disposition: DC-01 TO HOME OR SELFCARE Is pt being admited?: No Does the pt Need Aspirin: No Condition: Stable Instructions: Abdominal Pain in (ED) Referrals: CHELSEA JACKSON MD [Primary Care Provider] - 3-5 Days
[2018-11-24 04:28] LABS: Alanine Aminotransferase < 5 units/L (7-56); Albumin 3.6 g/dL (3.9-5); BUN/Creatinine Ratio 17; Blood Urea Nitrogen 10 mg/dL (7-17); Calcium 9.1 mg/dL (8.4-10.2); Hemolysis Index 1
--- NOTE | 2018-11-24 04:37 | Ultrasound Report ---
US OB >= 14 weeks Fetus INDICATION / CLINICAL INFORMATION: pelvic pain. COMPARISON: 10/02/2018 FINDINGS: Single live fetus in the breech presentation. heart rate 141 bpm. The placenta is posterior and free of the os. measurements: BPD 3.5 equals 16 weeks 5 days Head circumference 12.9 equals 16 weeks 4 days Abdominal circumference 11 equals 16 weeks 6 days Femur length 2 equals 16 weeks Estimated body weight 156 g. Adnexal structures are normal. IMPRESSION: 1. Single 16 week intrauterine gestation currently in the breech presentation. Signer Name: Sarkis Ford MD Signed: 11/24/2018 4:32 AM Workstation Name: [id number]
== END 2018-11-24 06:40 | disposition home or self-care (01) ==
LOC: ED 03:21
DX: O26.892 Other specified pregnancy related conditions, second trimester (principal); R10.2 Pelvic and perineal pain; Z3A.16 16 weeks gestation of pregnancy; Z79.899 Other long term (current) drug therapy
CPT/HCPCS: 36415; 76805; 80053; 84702; 85025; 86900; 86901; 96374; 96375; 99284; J2270; J2405; J7030

== ENCOUNTER 2019-05-07 01:04 | Inpatient (IN) | payer OTHER ==
[2019-05-07] MEDS ORDERED: LACTATED RINGERS 2,000 ML ONE (01:49)
[2019-05-07] MEDS ORDERED: TERBUTALINE 1 MG/1 ML INJ SUB-Q PRN ×2 (01:54→02:31)
[2019-05-07] MEDS ORDERED: MINERAL OIL 30 ML ORAL LIQD PO PRN ×2 (01:54→02:31)
[2019-05-07] MEDS ORDERED: TERBUTALINE 1 MG/1 ML INJ IVP PRN ×2 (01:54→02:31)
[2019-05-07] MEDS ORDERED: LIDOCAINE (2%) 20 MG/1 ML VIAL 20 ML MDV INFILTRATI ONE ×2 (01:54→02:31)
[2019-05-07] MEDS ORDERED: AMPICILLIN/NS 2 GM/100 ML 2 GM/100 ML BAG IV ONE (01:54)
[2019-05-07] MEDS ORDERED: ePHEDrine SULFATE 50 MG/1 ML INJ IV PRN ×2 (01:54→02:31)
[2019-05-07] MEDS ORDERED: fentaNYL 100 MCG/2 ML INJ IV PRN (01:54)
[2019-05-07] MEDS ORDERED: LACTATED RINGERS 1,000 ML IV SCH ×2 (02:00→03:00)
[2019-05-07] MEDS ORDERED: OXYTOCIN 20 UNIT/1000ML DRIP 20 UNITS/1,000 ML BAG IV SCH ×3 (02:00→03:00)
--- NOTE | 2019-05-07 02:15 | History and Physical Report ---
History of Present Illness Date of examination: 05/07/19 Date of admission: 05/07/19 01:42 Chief complaint: Labor History of present illness: Pt is a 23yo BF EDC 05/05/19; EGA 40 2/7 weeks presents to L&D complaining of SROM clear fluid @ midnight followed by RUC's q 3-4 mins. She received late care at [facility] since 34 weeks and course has been unremarkable. records are not available and GBS is unknown. Past History Past Medical History: no pertinent history Social history: no significant social history, - Obstetrical History Expected Date of Delivery: 05/05/19 Actual Gestation: 40 Week(s) 2 Day(s) : 3 Medications and Allergies Allergies Allergy/AdvReac Type Severity Reaction Status Date / Time No Known Allergies Allergy Verified 06/28/16 15:06 Home Medications Medication Instructions Recorded Confirmed Last Taken Type Ferrous Sulfate [Feosol 325 MG tab] 325 mg PO BID #60 tablet 01/25/17 05/07/19 Unknown Rx HYDROcodone/APAP 5-325 [[place] 1 each PO Q6HR PRN #30 tablet 01/25/17 05/07/19 Unknown Rx 5/325] Ibuprofen [Motrin] 600 mg PO Q6H PRN #30 tablet 01/25/17 05/07/19 Unknown Rx Vitamin 1 tab PO QDAY #90 10/03/18 05/07/19 Unknown Rx Active Meds: Active Medications Ephedrine Sulfate (Ephedrine Sulfate) 10 mg IV Q2M PRN PRN Reason: Hypotension Fentanyl (Sublimaze) 100 mcg IV Q2H PRN PRN Reason: Labor Pain Oxytocin/Sodium Chloride (Pitocin/Ns 20 Unit/1000ml Drip) 20 units in 1,000 mls @ 125 mls/hr IV DIRECT KIRILL Lactated Ringer's (Lactated Ringers) 1,000 mls @ 125 mls/hr IV DIRECT KIRILL Ampicillin Sodium (Ampicillin/Ns 2 Gm/100 Ml) 2 gm in 100 mls @ 100 mls/hr IV ONCE ONE; Protocol Stop: 05/07/19 02:53 Ampicillin Sodium (Ampicillin/Ns 1 Gm/50 Ml) 1 gm in 50 mls @ 100 mls/hr IV Q4HR KIRILL; Protocol Mineral Oil (Mineral Oil) 30 ml PO QHS PRN PRN Reason: Constipation Terbutaline Sulfate (Brethine) 0.25 mg SUB-Q ONCE PRN PRN Reason: Hyperstimulation/Hypertonicity Terbutaline Sulfate (Brethine) 0.25 mg IVP ONCE PRN PRN Reason: Hyperstimulation/Hypertonicity Review of Systems All systems: negative - Vital Signs Vital signs: Vital Signs Pulse BP 75 102/61 05/07/19 01:58 05/07/19 01:58 Temp Pulse Resp BP Pulse Ox 75 102/61 05/07/19 01:58 05/07/19 01:58 - Physical Exam Breasts: Positive: deferred Cardiovascular: Regular rate Lungs: Positive: Clear to auscultation Abdomen: Positive: normal appearance Genitourinary (Female): Positive: normal external genitalia Vagina: Positive: normal moisture Uterus: Positive: enlarged - Obstetrical FHR: category 1 Uterine Contraction Monitor Mode: External Cervical Dilatation: 5 (per nurse) Cervical Effacement Percentage: 80 (per nurse) station: -2 Uterine Contraction Pattern: Regular Uterine Tone Measurement Phase: Contraction Uterine Contraction Intensity: Strong/Firm Results Result Diagrams: 05/07/19 02:00 All other labs normal. Assessment and Plan - Patient Problems (1) 40 weeks gestation of Onset Date: 05/07/19 Current Visit: Yes Status: Acute Plan to address problem: A: IUP @ 40 2/7 weeks in labor Unknown GBS P: Admit to L&D for expectant vaginal delivery IV Ampicillin
[2019-05-07] MEDS ORDERED: ONDANSETRON 4 MG/2 ML INJ IV PRN (02:34)
[2019-05-07] MEDS ORDERED: diphenhydrAMINE 25 MG CAP PO PRN (02:34)
[2019-05-07] MEDS ORDERED: ACETAMINOPHEN 325 MG TAB PO PRN (02:34)
[2019-05-07] MEDS ORDERED: MAGNESIUM HYDROXIDE (MOM) ORAL LIQD UDC PO PRN (02:34)
[2019-05-07] MEDS ORDERED: LANOLIN/ZINC/DIMETHICONE (LANSINOH) 7 GM TP PRN (02:34)
[2019-05-07] MEDS ORDERED: PROMETHAZINE 25 MG RECT SUPP PR PRN (02:34)
[2019-05-07] MEDS ORDERED: PROMETHAZINE 25 MG TAB PO PRN (02:34)
[2019-05-07] MEDS ORDERED: WITCH HAZEL/ GLYCERIN PAD TP PRN (02:34)
--- NOTE | 2019-05-07 02:41 | Procedure Note ---
OB Delivery Note - Delivery Date of Delivery: 05/07/19 Surgeon: LILIA NORMAN Estimated blood loss: other (150ml) - Vaginal Delivery presentation: vertex Delivery position: OA Intrapartum events: PROM->1hr before delivery, precipitous labor- <3hr Delivery induction: none Delivery augmentation: rupture of membranes Delivery monitor: external FHT, external uterine Route of delivery: Delivery placenta: spontaneous Delivery cord: nuchal cord, 3 umbilical vessels Episiotomy: none Delivery laceration: 1st degree (perineal) Delivery repair: vicryl Anesthesia: local Delivery comments: Infant delivered OA and placed on Mom's chest for [id number] bonding and delayed cord clamping, cut by Dad - A at 1 minute: 8 at 5 minutes: 9 Gender: Female (2946gms)
[2019-05-07 02:56] LABS: Hematocrit 31.6 % (30.3-42.9); Hemoglobin 10.2 gm/dl (10.1-14.3); Mean Corpuscular HGB Conc 32 % (30-34); Mean Corpuscular Volume 82 fl (79-97); Platelet Count 211 K/mm3 (140-440); Red Blood Count 3.86 M/mm3 (3.65-5.03); Red Cell Distribution Width 14.1 % (13.2-15.2)
[2019-05-07] MEDS ORDERED: OXYTOCIN DRIP 30 UNITS/500 ML BAG IV SCH (03:00)
[2019-05-07] MEDS: HYDROcodone/ACETAMINOPHEN 5-325 MG TAB PO PRN ×2 (03:21→16:48)
[2019-05-07] MEDS ORDERED: AMPICILLIN/NS 1 GM/50 ML 1 GM/50 ML BAG IV SCH (05:55)
[2019-05-07] MEDS: IBUPROFEN 600 MG TAB PO SCH ×3 (06:14→21:06)
[2019-05-07] MEDS: FERROUS SULFATE 325 MG TAB PO SCH ×2 (09:45→21:06)
[2019-05-07] MEDS: PRENATAL VIT27-FE FUMARATE-FOLIC ACID VIT TAB PO SCH (09:45)
[2019-05-07] MEDS ORDERED: FLU VACC QUAD 2019-20 (3 YR UP)/PF 60 MCG/0.5 ML SYRINGE IM ONE (12:00)
[2019-05-07 16:22] LABS: Hematocrit 28.4 % (30.3-42.9); Hemoglobin 9.2 gm/dl (10.1-14.3)
[2019-05-07] MEDS: DOCUSATE SODIUM 100 MG CAP PO SCH ×2 (16:48→21:06)
[2019-05-08] MEDS ORDERED: TETANUS,DIPH,PERTUSS(ACELL) VACCINE 0.5 ML SYRINGE IM ONE (02:34)
[2019-05-08] MEDS: IBUPROFEN 600 MG TAB PO SCH ×4 (05:22→21:33)
[2019-05-08] MEDS ORDERED: MEASLES, MUMPS & RUBELLA 12,500 UNIT/0.5 ML VACCINE SUB-Q ONE (06:00)
[2019-05-08] MEDS: DOCUSATE SODIUM 100 MG CAP PO SCH ×2 (09:12→21:28)
[2019-05-08] MEDS: FERROUS SULFATE 325 MG TAB PO SCH ×2 (09:12→21:28)
[2019-05-08] MEDS: PRENATAL VIT27-FE FUMARATE-FOLIC ACID VIT TAB PO SCH (09:12)
--- NOTE | 2019-05-08 10:24 | Progress Note ---
Assessment and Plan - Patient Problems (1) 40 weeks gestation of Onset Date: 05/07/19 Current Visit: Yes Status: Resolved (2) (normal spontaneous vaginal delivery) Onset Date: 05/08/19 Current Visit: Yes Status: Resolved Plan to address problem: A: S/P - PPD #1 Doing well Asymptomatic anemia - stable P: May go home tomorrow. Subjective - Subjective Date of service: 05/08/19 Principal diagnosis: s/p - PPD #1 Interval history: Pt is feeling well without complaints. Bleeding improved. Patient reports: appetite normal, voiding normally, pain well controlled, flatus, ambulating normally, no dizzy ambulation, no nauseated [place]: doing well, nursing well, bottle feeding Objective - Vital Signs Latest vital signs: Vital Signs Temp Pulse Resp BP Pulse Ox 05/08/19 09:11 97.8 F 65 18 101/58 95 05/08/19 00:57 97.8 F 69 20 102/71 96 05/07/19 17:15 98.7 F 87 16 110/77 97 05/07/19 12:41 98.4 F 59 L 16 99/62 99 Intake and Output 05/07/19 05/08/19 05/08/19 22:59 06:59 14:59 Intake Total 1080 480 240 Output Total 500 Balance 580 480 240 Intake: Oral 720 480 240 Intake, Free Water 360 Output: Urine 500 Void 500 Other: Total, Intake Amount 240 240 240 Total, Output Amount 500 # Voids Void 1 1 - Exam Breasts: Present: deferred Abdomen: Present: normal appearance, soft Uterus: Present: normal, firm, fundal height below umbilicus Extremities: Present: normal - Labs Labs: Abnormal lab results 05/07/19 Range/Units 15:57 Hgb 9.2 L (10.1-14.3) gm/dl Hct 28.4 L (30.3-42.9) % Laboratory Tests 05/07/19 05/07/19 05/07/19 02:00 02:00 15:57 WBC 10.7 RBC 3.86 Hgb 10.2 9.2 L Hct 31.6 28.4 L MCV 82 MCH 26 L MCHC 32 RDW 14.1 Plt Count 211 Hep Bs Antigen HIV 1&2 Antibody Rapid HIV P24 Antigen Rubella IgG Antibody Blood Type O POSITIVE Antibody Screen Negative 05/07/19 05/07/19 05/07/19 15:57 16:02 16:02 WBC RBC Hgb Hct MCV MCH MCHC RDW Plt Count Hep Bs Antigen Non-reactive HIV 1&2 Antibody Rapid Non react HIV P24 Antigen Non react Rubella IgG Antibody Immune Blood Type Antibody Screen
--- NOTE | 2019-05-08 10:57 | Discharge Summary ---
Providers - Providers Date of Admission: 05/07/19 01:42 Date of discharge: 05/09/19 Attending physician: LILIA NORMAN Primary care physician: LILIA NORMAN Hospitalization Reason for admission: active labor, rupture of membranes, IUP at term Delivery: Episiotomy: none Laceration: 1st degree Other procedures: none complications: none Discharge diagnosis: IUP at term delivered baby: female Hospital course: Unremarkable. Condition at discharge: Good Disposition: DC-01 TO HOME OR SELFCARE - Discharge Diagnoses (1) 40 weeks gestation of Status: Resolved (2) (normal spontaneous vaginal delivery) Status: Resolved Plan - Discharge Medications Prescriptions: Ferrous Sulfate [Feosol 325 MG tab] 325 mg PO BID #60 tablet Ibuprofen [Motrin 600 MG tab] 600 mg PO Q6HR #30 tablet Vit-Fe Fumar-FA [ Vitamin] 1 each PO QDAY #30 tablet - Provider Discharge Summary Activity: routine, no sex for 6 weeks, no heavy lifting 4 weeks, no strenuous exercise Diet: routine Instructions: routine Additional instructions: [] Smoking cessation referral if applicable(refer to patient education folder for contact #) [] Refer to [facility]'s [facility] Center Booklet Call your doctor immediately for: * Fever > 100.5 * Heavy vaginal bleeding ( >1 pad per hour) * Severe persistent headache * Shortness of breath * Reddened, hot, painful area to leg or breast * Drainage or odor from incision. * Keep incision clean and dry at all times and follow doctor's instructions regarding bathing/showering - Follow up plan Follow up: LILIA NORMAN MD [Primary Care Provider] - 6 Weeks
[2019-05-09] MEDS: IBUPROFEN 600 MG TAB PO SCH ×2 (05:43→11:32)
[2019-05-09] MEDS: DOCUSATE SODIUM 100 MG CAP PO SCH (11:31)
[2019-05-09] MEDS: FERROUS SULFATE 325 MG TAB PO SCH (11:32)
[2019-05-09] MEDS: PRENATAL VIT27-FE FUMARATE-FOLIC ACID VIT TAB PO SCH (11:32)
[2019-05-09 15:26] VITALS: BP 100/67
== END 2019-05-09 15:45 | disposition home or self-care (01) | DRG 807 ==
LOC: TRG 01:04 → LD 01:42 → OB 05:50
PROVIDERS: ADMIT Obstetrics & Gynecology; ATTEND Obstetrics & Gynecology
PROC: 10E0XZZ Delivery of Products of Conception, External Approach (ICD-10-PCS; principal; 2019-05-07)
PROC: 0HQ9XZZ Repair Perineum Skin, External Approach (ICD-10-PCS; 2019-05-07)
PROC: 3E0234Z Introduction of Serum, Toxoid and Vaccine into Muscle, Percutaneous Approach (ICD-10-PCS; 2019-05-08)
DX: O42.92 Full-term premature rupture of membranes, unspecified as to length of time between rupture and onset of labor (principal); Z37.0 Single live birth; O62.3 Precipitate labor; O69.81X0 Labor and delivery complicated by cord around neck, without compression, not applicable or unspecified; O70.0 First degree perineal laceration during delivery; Z3A.40 40 weeks gestation of pregnancy; O99.02 Anemia complicating childbirth; D64.9 Anemia, unspecified; Z23 Encounter for immunization
CPT/HCPCS: 36415; 85014; 85018; 85027; 86706; 86762; 86850; 86900; 86901; 87806; 90686; G0378; J0290; J2590; J7120